=== PATIENT | male | born 1960 | race Caucasian/White ===

== ENCOUNTER → 2020-09-26 | Outpatient (CLI) | payer BC ==
--- NOTE | 2020-09-26 10:13 | CT ---
EXAMINATION TYPE: CT heart w calcium score DATE OF EXAM: 09/26/2020 COMPARISON: None HISTORY: Screening for cardiovascular disorder. 213.9 CT DLP: 171.90 mGycm Automated exposure control for dose reduction was used. CT CALCIUM SCORING Coronary calcium is a marker for plaque (fatty deposits) in a blood vessel or atherosclerosis (harden ing of the arteries). The presence and amount of calcium detected in a coronary artery by the CT sca n, indicates the presence and amount of atherosclerotic plaque. These calcium deposits appear years before the development of heart disease symptoms such as chest pain and shortness of breath. A calcium score is computed for each of the coronary arteries based upon the volume and density of th e calcium deposits. This can be referred to as your calcified plaque burden. It does not correspond directly to the percentage of narrowing in the artery but does correlate with the severity of the un derlying coronary atherosclerosis. PROCEDURE TECHNIQUE - Prospective Gating was used. Slice thickness: 3mm. Density threshold (HU): 130, Pixel threshold: 3, Algorithm: discrete. RESULTS Region: LM Calcium Score ([place]): 17.08 Volume (mm3): 27.09 Mass (g): 9.03 Region: RCA Calcium Score ([place]): 75.9 Volume (mm3): 90.05 Mass (g): 30.02 Region: LAD Calcium Score ([place]): 247.45 Volume (mm3): 191.81 Mass (g): 63.94 Region: CX Calcium Score ([place]): 276.74 Volume (mm3): 274.54 Mass (g): 91.51 Region: PDA Calcium Score ([place]): Volume (mm3): Mass (g): Total: Calcium Score ([place]): 617.17 Volume (mm3): 583.49 Mass (g): 194.5 TOTAL CALCIUM SCORE: 617.17 IMPRESSION: Calcium Score: 617 Implication: Extensive atherosclerotic plaque Risk of Coronary Artery Disease: High likelihood of at least one significant coronary narrowing. CALCIUM SCORE IMPLICATION RISK OF C ORONARY ARTERY DISEASE 0 No identifiable plaque Very low, generally less than 5% 1-10 Minimal identifiable plaque Very unlikely, less than 10% 11-100 Definite, at least mild atherosclerotic plaque Mild or m inimal coronary narrowings likely 101-400 Definite, at least moderate atherosclerotic plaque Mild coronary ar eddie disease highly likely, significant narrowing possible 401 or Higher Extensive atherosclerotic plaque High lik elihood of at least one significant coronary narrowing
== END | disposition home or self-care (01) ==
LOC: RADCTMAIN 08:13
PROVIDERS: ATTEND Family Medicine
DX: I25.10 Atherosclerotic heart disease of native coronary artery without angina pectoris (principal)
CPT/HCPCS: 75571

== ENCOUNTER 2022-05-07 09:49 | Day surgery (SDC) | payer BC ==
[2022-05-06 10:55] VITALS: BMI 36.4
[~2022-05-07 09:49] MED LIST: LACTATED RINGERS 1,000 ML IV SCH
[2022-05-07 10:39] LABS: Glucose,Whole Blood 104 mg/dL (70-110)
[2022-05-07] MEDS ORDERED: LIDOCAINE 1% (10MG/ML) FOR IV START INTRADERMA ONE (10:40)
[2022-05-07 10:43] VITALS: TEMP 97.2
[2022-05-07] MEDS ORDERED: PROPOFOL 10 MG/ML 20 ML VIAL IV ONE (12:12)
--- NOTE | 2022-05-07 12:28 | P.PCN ---
Date of Procedure: 05/07/22 Procedure(s) Performed: BRIEF HISTORY: Patient is a 61-year-old pleasant 8 male scheduled for an elective colonoscopy as a part of screening for colon cancer. PROCEDURE PERFORMED: Colonoscopy. PREOPERATIVE DIAGNOSIS: Screening for colon cancer. IV sedation per Anesthesia. PROCEDURE: After informed consent was obtained, the patient, was brought into the endoscopy unit. IV sedation was administered by Anesthesia under continuous monitoring. Digital rectal examination was normal. Initially the Olympus CF-160 flexible video colonoscope was then inserted in the rectum, gradually advanced into the cecum without any difficulty. Careful examination was performed as the scope was gradually being withdrawn. Ileocecal valve and the appendiceal orifice were visualized and appeared normal. Prep was fair.. Mucosa of the cecum, ascending colon, transverse colon, descending colon, sigmoid colon, and rectum appeared normal. Scattered sigmoid diverticulosis. Retroflexion was performed in the rectum and no lesions were seen. The patient tolerated the procedure well. IMPRESSION: Normal-appearing colon from rectum to cecum with no evidence of colorectal neoplasia . Scattered sigmoid diverticulosis. RECOMMENDATIONS: Findings of this examination were discussed with the patient as well as his family. He was advised to have a repeat screening colonoscopy in 10 years
[2022-05-07 13:08] VITALS: BP 108/70; PULSE 65; RESP 17
== END 2022-05-07 13:05 | disposition home or self-care (01) ==
LOC: ORWHC2ENDO 09:49
PROVIDERS: ATTEND Internal Medicine Gastroenterology
DX: Z12.11 Encounter for screening for malignant neoplasm of colon (principal); K57.30 Diverticulosis of large intestine without perforation or abscess without bleeding; I10 Essential (primary) hypertension; E78.5 Hyperlipidemia, unspecified; J44.9 Chronic obstructive pulmonary disease, unspecified; G47.33 Obstructive sleep apnea (adult) (pediatric); E11.9 Type 2 diabetes mellitus without complications; Z79.84 Long term (current) use of oral hypoglycemic drugs; Z79.899 Other long term (current) drug therapy; Z99.89 Dependence on other enabling machines and devices
CPT/HCPCS: 45378; J2704

== ENCOUNTER → 2023-08-18 | Outpatient (CLI) | payer BC ==
--- NOTE | 2023-08-19 07:46 | XR ---
EXAMINATION TYPE: XR foot complete RT DATE OF EXAM: 08/18/2023 COMPARISON: NONE HISTORY: Pain TECHNIQUE: Three views are submitted. FINDINGS: The osseous structures are intact. There is no acute fracture or dislocation. 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 Tiny plantar calcaneal spur. IMPRESSION: 1. Tiny plantar calcaneal spur. 2. Moderate arthropathy first MTP joint.
== END | disposition home or self-care (01) ==
LOC: RADXRYALE 16:49
PROVIDERS: ATTEND Family Medicine
DX: M77.31 Calcaneal spur, right foot (principal); M19.071 Primary osteoarthritis, right ankle and foot